=== PATIENT | female | born 1980 | race Caucasian/White ===

== ENCOUNTER 2021-11-03 11:18 | Outpatient (CLI) | payer BC, SELFPAY ==
[2021-11-03 12:22] LABS: Chloride* 105 mmol/L (96-114); Potassium* 4.8 mmol/L (3.6-5.1); Sodium* 138 mmol/L (135-149)
[2021-11-03 12:25] LABS: Carbon Dioxide* 27 mmol/L (20-32); Cholesterol* 177 mg/dL (90-199); Creatinine* 0.7 mg/dL (0.5-1.5); Estimated Glomerular Filt Rate 113 ml/min
[2021-11-03 12:26] LABS: Blood Urea Nitrogen* 14 mg/dL (5-24); Calcium* 9.4 mg/dL (8.4-10.6); Glucose* 107 mg/dL (60-115); HDL Cholesterol* 78 mg/dL (>=50); LDL Cholesterol Calculated 87 mg/dL (<100); Triglycerides* 61 mg/dL (40-149)
== END 2021-11-03 11:19 | disposition home or self-care (01) ==
PROVIDERS: PCP Physician Assistant Medical; Visit Provider Physician Assistant Medical
DX: Z00.00 Encounter for general adult medical examination without abnormal findings (principal); N94.6 Dysmenorrhea, unspecified; G44.209 Tension-type headache, unspecified, not intractable; Z13.6 Encounter for screening for cardiovascular disorders
CPT/HCPCS: 80048; 80061

== ENCOUNTER 2021-11-07 17:39 | Outpatient (CLI) | payer BC, SELFPAY | END 2021-11-07 17:40 | disposition home or self-care (01) | PROVIDERS: PCP Physician Assistant Medical; Visit Provider Physician Assistant Medical | DX: Z01.419 Encounter for gynecological examination (general) (routine) without abnormal findings (principal); N94.6 Dysmenorrhea, unspecified | CPT/HCPCS: 87624; 88175 ==

== ENCOUNTER 2022-10-18 13:29 | Outpatient (CLI) | payer BC, SELFPAY ==
--- NOTE | 2022-10-18 13:30 | CRLHL7_ITS ---
For Patients: As a result of the Century Cures Act, medical imaging exams and procedure reports are released immediately into your electronic medical record. You may view this report before your referring provider. If you have questions, please contact your health care provider. Indication: Migraine headaches Technique: Noncontrast sagittal T1, axial FLAIR, T2, diffusion, SWI weighted sequences are provided. No comparisons. Findings: The ventricles, sulci and gyri are normal size, shape and contour for age. The midline structures are centrally located with no evidence of shift. There are no suspicious intra or extra-axial fluid collections. No region of restricted diffusion. There is a 6 millimeter ovoid region of susceptibility within the inferior irineo that may represent presence of a small incidental cavernoma. Expected flow voids in the cavernous carotids and basilar artery. Impression: 1. No radiographic evidence of acute intracranial abnormalities. 2. Small region of susceptibility within the inferior irineo that may represent presence of a small cavernoma. Dictated by Curt Wheeler MD @ 10/18/2022 5:43:19 PM Dictated by: Curt Wheeler MD @ 10/18/2022 17:43:25 (Electronically Signed)
== END 2022-10-18 13:30 | disposition home or self-care (01) ==
PROVIDERS: PCP Physician Assistant Medical; Visit Provider Psychiatry & Neurology Neurology
DX: G43.109 Migraine with aura, not intractable, without status migrainosus (principal); G93.9 Disorder of brain, unspecified
CPT/HCPCS: 70551